=== PATIENT | female | born 1945 | race Caucasian/White ===

== ENCOUNTER → 2019-07-17 | Outpatient (CLI) | payer OTHER ==
[~2019-07-17] MED LIST: ALBU90OI6 INH; ASPI81CH PO; BIEST; BUSP15; CHLO4 PO; CHOL10002 PO; CINNAMON; CYCL10 PO; ESCI10; FISH OIL 1,0001 EAC1 PO; FURO20 PO; Ferrous Sulfat325 MG PO; GABA100 PO; GLIP5 PO; HYDACE10B; HYDACE10B PO; HYDCHL12.5 PO; HYDCHLSU PO; HYDPAM25 PO; IBUP600 PO; IRON; LEVLIO2; LEVO750 PO; LISI10; LISI5 PO; LORA.5 PO; LOVA40; LOVA40 PO; METO25ER PO; METO50ER; METO50ER PO; MOMENI; MULVITMIND PO; Melatonin5 M1 PO; POTASSIUM99 MG PO; POTCHL20ER PO; PRED10 PO; PROG; PROP10 PO; QUET25; RANI150 PO; SIMV5 PO; TIOT18 INH; VENL75ER PO; Vitamin C100 M1 PO; Zyloprim100 MG PO
== END | disposition home or self-care (01) ==
LOC: LAB SHORT 08:20 → PLD 08:20
DX: L57.0 Actinic keratosis (principal); L81.9 Disorder of pigmentation, unspecified
CPT/HCPCS: 88305

== ENCOUNTER → 2019-10-17 | Outpatient (CLI) | payer MEDICARE ==
[2019-10-19 13:45] LABS: Stool Occult Bld Immuno 1 Negative (NEGATIVE)
== END | disposition home or self-care (01) ==
LOC: LAB 10:00 → LAB SHORT 10:00 → LAB FUT 07-02 13:15
PROVIDERS: Physician Assistant
DX: Z12.11 Encounter for screening for malignant neoplasm of colon (principal)
CPT/HCPCS: G0328

== ENCOUNTER → 2023-09-09 | Outpatient (CLI) | payer MEDICARE ==
[2023-09-09 10:48] LABS: BASOPHILS ABSOLUTE AUTO 0.05 K/mm3 (0.00-0.23); BASOPHILS PERCENT AUTO 1 % (0-2); EOSINOPHILS ABSOLUTE AUTO 0.15 K/mm3 (0.00-0.68); EOSINOPHILS PERCENT AUTO 2 % (0-6); Hematocrit 37.3 % (33.0-51.0); Hemoglobin 12.2 g/dL (11.5-16.0); IMMATURE GRAN ABSOLUTE AUTO 0.03 K/mm3 (0.00-0.10); IMMATURE GRAN PERCENT AUTO 0 % (0-1); LYMPHOCYTES PERCENT AUTO 18 % (21-46); MONOCYTES ABSOLUTE AUTO 0.53 K/mm3 (0.16-1.47); MONOCYTES PERCENT AUTO 6 % (4-13); Mean Corpuscular HGB 32.9 pg (26.0-34.0); Mean Corpuscular HGB Conc 32.7 g/dL (31.5-36.5); Mean Corpuscular Volume 101 fL (80-100); Mean Platelet Volume 10.9 fL (9.1-12.4); NEUTROPHILS ABSOLUTE AUTO 6.33 K/mm3 (1.96-9.15); NEUTROPHILS PERCENT AUTO 74 % (41-73); Platelet Count 269 K/mm3 (150-400); RDW Coefficient Variation 13.9 % (11.7-14.2); RDW Standard Deviation 50.9 fL (35.1-46.3); Red Blood Cell Count 3.71 M/mm3 (3.80-5.20); White Blood Cell Count 8.59 K/mm3 (4.00-11.30)
[2023-09-09 10:52] LABS: Bun/Creatinine Ratio 17.5 (12.0-20.0); Calcium, Blood 9.5 mg/dL (8.5-10.1); Creatinine, Blood 1.14 mg/dL (0.40-1.00); Potassium, Blood 4.3 mmol/L (3.5-5.5)
== END ==
LOC: LAB SHORT 10:42 → LAB 10:42
PROVIDERS: Physician Assistant Surgical
DX: I95.9 Hypotension, unspecified (principal)
CPT/HCPCS: 80048; 85025

== ENCOUNTER 2024-09-11 07:06 | Day surgery (SDC) | payer MEDICARE ==
[~2024-09-11] VITALS: Ht 154.9 cm; Wt 69.2 kg
[~2024-09-11 07:06] MED LIST changes: +Balanced Salt Epinephrine Irrigation Solution 500 mL IR SCH; +Lidocaine HCl/Pf 1% 5 ML VIAL ONE; +Lidocaine HCl/Pf 1% 5 ML VIAL XX SCH; +Moxifloxacin HCL 0.5 MG/0.1 ML 0.4MLSYR RIGHTEYE SCH; +PHENYLEPHRINE\\TROPICAMIDE\\TETRACAINE OPHTHALMIC DILATING SOLN RIGHTEYE PRN; +Povidone-Iodine 450 DROP/30 ML Solution RIGHTEYE SCH
[2024-09-11] MEDS ORDERED: Lisinopril2.5 MG (07:49)
[2024-09-11] MEDS ORDERED: SYNTHROID50 MC1 PO (07:51)
[2024-09-11] MEDS ORDERED: NORTRIPTYLINE H2512 PO (07:51)
[2024-09-11] MEDS ORDERED: TIZANIDINE HCL213 PO (07:52)
--- NOTE | 2024-09-11 07:57 | NUR ---
09/11/24 Lolis Smallwood CALL LIGHT WITHIN REACH. TETRACAINE IN RIGHT EYE AT [phone] AND PLEDGETT IN AT 0748
[2024-09-11] MEDS ORDERED: Ondansetron HCl 2 MG / ML 2ML Vial ONE (08:13)
[2024-09-11] MEDS ORDERED: Tetracaine HCl 0.5% Opth Soln 15 ml XX ONE (08:22)
[2024-09-11 08:47] VITALS: BP 133/91
== END 2024-09-11 08:56 | disposition home or self-care (01) ==
LOC: ORSCSDS 07:06
PROVIDERS: Student in an Organized Health Care Education/Training Program
PROC: 08RJ3JZ Replacement of Right Lens with Synthetic Substitute, Percutaneous Approach (ICD-10-PCS; principal; 2024-09-11 08:30)
DX: E11.36 Type 2 diabetes mellitus with diabetic cataract (principal); H25.813 Combined forms of age-related cataract, bilateral; M79.7 Fibromyalgia; I12.9 Hypertensive chronic kidney disease with stage 1 through stage 4 chronic kidney disease, or unspecified chronic kidney disease; E11.22 Type 2 diabetes mellitus with diabetic chronic kidney disease; N18.9 Chronic kidney disease, unspecified; Z79.899 Other long term (current) drug therapy
CPT/HCPCS: 82947; J2003; J2405; V2632

== ENCOUNTER 2024-09-18 07:06 | Day surgery (SDC) | payer MEDICARE ==
[~2024-09-18] VITALS: Ht 154.9 cm; Wt 69.2 kg
[~2024-09-18 07:06] MED LIST changes: -Lidocaine HCl/Pf 1% 5 ML VIAL ONE; +Lisinopril2.5 MG; +Moxifloxacin HCL 0.5 MG/0.1 ML 0.4MLSYR LEFTEYE SCH; -Moxifloxacin HCL 0.5 MG/0.1 ML 0.4MLSYR RIGHTEYE SCH; +NORTRIPTYLINE H2512 PO; +PHENYLEPHRINE\\TROPICAMIDE\\TETRACAINE OPHTHALMIC DILATING SOLN LEFTEYE PRN; -PHENYLEPHRINE\\TROPICAMIDE\\TETRACAINE OPHTHALMIC DILATING SOLN RIGHTEYE PRN; +Povidone-Iodine 450 DROP/30 ML Solution ONE; -Povidone-Iodine 450 DROP/30 ML Solution RIGHTEYE SCH; +SYNTHROID50 MC1 PO; +TIZANIDINE HCL213 PO; +Tetracaine HCl/Pf 0.5% Opth Soln 4 ml ONE
--- NOTE | 2024-09-18 10:08 | NUR ---
09/18/24 Chrystal8 Joe Mckoy PT INSTRUCTED TO MONITOR B/P AT HOME, AND FOLLOW UP WITH PCP IF NEEDED.
[2024-09-18 10:09] VITALS: BP 137/93
== END 2024-09-18 09:11 | disposition home or self-care (01) ==
LOC: ORSCSDS 07:06
PROVIDERS: Student in an Organized Health Care Education/Training Program
PROC: 08RK3JZ Replacement of Left Lens with Synthetic Substitute, Percutaneous Approach (ICD-10-PCS; principal; 2024-09-18 09:00)
DX: E11.36 Type 2 diabetes mellitus with diabetic cataract (principal); H25.812 Combined forms of age-related cataract, left eye; Z96.1 Presence of intraocular lens; I12.9 Hypertensive chronic kidney disease with stage 1 through stage 4 chronic kidney disease, or unspecified chronic kidney disease; E11.22 Type 2 diabetes mellitus with diabetic chronic kidney disease; N18.30 Chronic kidney disease, stage 3 unspecified; E03.9 Hypothyroidism, unspecified; Z79.899 Other long term (current) drug therapy
CPT/HCPCS: 82947; V2632